=== PATIENT | female | born 1945 | race Caucasian/White ===

== ENCOUNTER → 2024-06-21 11:25 | Outpatient (REF) | payer OTHER, SELFPAY | LOC: WDC 11:25 | PROVIDERS: ATTENDING PHYSICIAN Nurse Practitioner Adult Health | DX: R92.8 Other abnormal and inconclusive findings on diagnostic imaging of breast (principal); L04.8 Acute lymphadenitis of other sites | CPT/HCPCS: 76642 ==

== ENCOUNTER → 2024-09-13 11:34 | Outpatient (REF) | payer OTHER, SELFPAY | LOC: HWRAD 11:34 | PROVIDERS: ATTENDING PHYSICIAN Internal Medicine | DX: R51.9 Headache, unspecified (principal) | CPT/HCPCS: 70450 ==